=== PATIENT | male | born 1995 | race Caucasian/White ===

== ENCOUNTER 2017-03-19 08:16 | Emergency (ER) | payer SELFPAY ==
--- NOTE | 2017-03-19 08:46 | ER Document Report ---
HPI - HPI Patient complains to provider of: upper lip swelling, left nose swelling, left scalp lesion Onset: Other - few days Onset/Duration: Gradual Pain Level: 4 Context: 21 yo male with hx right thigh abscess c/o left scalp lesion that drained some pus, left nose red area and left upper lip red lesion. He tried to squeeze the nose and lip to get the pus out, no succes. No fever. Anxious. NKA Associated Symptoms: None Exacerbated by: Denies Relieved by: Denies Similar symptoms previously: Yes - right thigh - ROS ROS below otherwise negative: Yes Systems Reviewed and Negative: Yes All other systems reviewed and negative Past Medical History - General Information source: Patient - Social History Smoking Status: Current Every Day Smoker Frequency of alcohol use: None Drug Abuse: None Lives with: Family Family History: Reviewed & Not Pertinent - Medical History Medical History: Negative Surgical Hx: Negative Vertical Provider Document - CONSTITUTIONAL Agree With Documented VS: Yes Exam Limitations: No Limitations General Appearance: No Apparent Distress - INFECTION CONTROL TRAVEL OUTSIDE OF THE [place] IN LAST 30 DAYS: No - HEENT HEENT: Normocephalic Notes: right scalp with crusted 7mm abscess, Left external nares red, tender, no fluctuance, left upper kip at the meera border 1mm crusted lesion with extension upward 1 cm- the nose and face do not cumminate by exam - RESPIRATORY O2 Sat by Pulse Oximetry: 96 Course - Re-evaluation Re-evalutation: 03/19/17 11:08 ct shows soft tissue cellulitis no abscess - Vital Signs Vital signs: Temp Pulse Resp BP Pulse Ox 98.6 F 108 H 20 138/88 H 96 03/19/17 08:24 03/19/17 08:24 03/19/17 08:24 03/19/17 08:24 03/19/17 08:24 Procedures - Incision and Drainage Head Time completed: 10:30 Type: Simple Anesthetic type: 1% Lidocaine mL's of anesthetic: 2 Blade size: 11 I&D procedure: Other - antibacterial soap prep Incision Method: Incision made with needle Notes: 03/20/17 21:16 deroofed the left scalp lesion after anesthetizing, wound cx pus, cleansed with soap/H20, bactroban applied., anestheized left upper lip, 18 gauze needle used to deroof, palpated to remove the sebaceous d/c. bactroban applied to lateral nose and lip. instructed pt to do warm compress, take keflex and septra. Discharge - Discharge Clinical Impression: Facial cellulitis, left scalp abscess, left upper lip abscess Condition: Good Disposition: HOME, SELF-CARE Instructions: Acetaminophen, Cephalexin ([facility]), Use of [id number] Ibuprofen ([facility]), Trimethoprim-Sulfa ([facility]), Warm Packs ([facility]) Additional Instructions: to er if worse warm compress three times per day tylenol and motrin for pain scalp wound culture is pending septra twice a day keflex four times per day Prescriptions: Cephalexin Monohydrate [Keflex 500 mg Capsule] 500 mg PO QID #28 capsule Sulfamethoxazole/Trimethoprim [Sulfamethoxazole-Tmp Ds Tablet] 1 each PO BID # 14 tablet Forms: Return to Work
[2017-03-19] MEDS ORDERED: MUPIROCIN 2% OINTMENT 22 GM TP ONE (08:47)
[2017-03-19] MEDS ORDERED: LIDOCAINE 1% INJ-PF (10 MG/ML) 30 ML SDV INJ ONE (08:47)
[2017-03-19] MEDS ORDERED: ACETAMINOPHEN 325 MG TABLET PO ONE (09:31)
[2017-03-19] MEDS ORDERED: IBUPROFEN 800 MG TABLET PO ONE (09:31)
[2017-03-19] MEDS ORDERED: ONDANSETRON 4 MG TAB.RAPDIS PO ONE (09:32)
[2017-03-19] MEDS ORDERED: SULFAMETHOXAZOLE/TRIMETHOPRIM 800-160 MG TABLET PO ONE (09:32)
[2017-03-19] MEDS ORDERED: LORAZEPAM 1 MG TABLET PO ONE (09:56)
--- NOTE | 2017-03-19 10:54 | RADIOLOGY REPORT (SQ) ---
EXAM DESCRIPTION: CT FACIAL AREA WITH COMPLETED DATE/TIME: 03/19/2017 10:42 am REASON FOR STUDY: extension of facial abscess COMPARISON: None. TECHNIQUE: Post contrast images through the facial bones and orbits windowed for bone and soft tissu e. Additional coronal and sagittal reconstructed images reviewed. All images stored on PACS. All CT scanners at this facility use dose modulation, iterative reconstruction, and/or weight based d osing when appropriate to reduce radiation dose to as low as reasonably achievable (ALARA). [facility]: Dose Right [facility]: CareDose [facility]: Dose Right [facility]: Teradose 4D [facility]: U-Systems CONTRAST TYPE AND DOSE: contrast/concentration: Isovue 370.00 mg/ml; Total Contrast Delivered: 50.0 ml; Total Saline Delivered: 50.0 ml RENAL FUNCTION: None required. The patient is less than 50 years old. RADIATION DOSE: CT Rad equipment meets quality standard of care and radiation dose reduction techniq ues were employed. CTDIvol: 30.4 mGy. DLP: 574 mGy-cm. . LIMITATIONS: None. FINDINGS: FACIAL BONES: No fracture or bone lesion. ORBITS: Intact. No fracture. Symmetric intact globes and retroorbital soft tissues. PARANASAL SINUSES: Fluid in the ethmoid and sphenoid sinuses. Mucosal thickening maxillary sinuses. SOFT TISSUES: Subcutaneous inflammation over the left side of the face and cheek. No abscess INFERIOR BRAIN: Limited view. No acute findings. OTHER: No other significant finding. IMPRESSION: Cellulitis. No abscess. TECHNICAL DOCUMENTATION: JOB ID: [id number] Quality ID # [id number]: Final reports with documentation of one or more dose reduction techniques (e.g., Au tomated exposure control, adjustment of the mA and/or kV according to patient size, use of iterative reconstruction technique) 2010 [employer]- All Rights Reserved
[2017-03-19] MEDS ORDERED: CEPHALEXIN 500 MG CAPSULE PO ONE (11:03)
[2017-03-19 12:12] VITALS: BP 136/82
== END 2017-03-19 12:12 | disposition home or self-care (01) ==
LOC: ER 08:16
PROC: 0H90XZZ Drainage of Scalp Skin, External Approach (ICD-10-PCS; principal; 2017-03-19)
DX: L02.811 Cutaneous abscess of head [any part, except face] (principal); L03.211 Cellulitis of face; K13.0 Diseases of lips; R22.0 Localized swelling, mass and lump, head; F17.200 Nicotine dependence, unspecified, uncomplicated
CPT/HCPCS: 99284; 87070; 87205; 87077; 87186; 70487; 10060; S0119; J3490 ×2

== ENCOUNTER 2017-03-20 06:36 | Emergency (ER) | payer SELFPAY ==
[2017-03-20 06:44] VITALS: BP 125/88
--- NOTE | 2017-03-20 07:05 | ER Document Report ---
ED General - General Chief Complaint: Facial Swelling Stated Complaint: POSSIBLE ALLERGIC REACTION Time Seen by Provider: 03/20/17 06:49 Mode of Arrival: Ambulatory Information source: Patient Notes: 21 yr old male presents with complaitns of further facial swelling. Pt was seen here yesterday, he started on Bactrim and Keflex, had a CT facial which was consistent with cellulitis with no abscess. Patient notes when he woke this morning there was more swelling of his left upper lip, he denies any fevers denies any difficulty breathing denies any airway compromise patient denies any drainage TRAVEL OUTSIDE OF THE [place] IN LAST 30 DAYS: No - HPI Onset: Other - 3 day duration Onset/Duration: Worse Quality of pain: No pain Severity: Mild Pain Level: Denies Associated symptoms: Other Exacerbated by: Denies Relieved by: Denies Similar symptoms previously: Yes Recently seen / treated by doctor: Yes - Related Data Allergies/Adverse Reactions: No Known Drug Allergies Allergy (Verified 03/19/17 08:17) Past Medical History - Social History Smoking Status: Current Every Day Smoker Cigarette use (# per day): Yes Chew tobacco use (# tins/day): No Smoking Education Provided: No Frequency of alcohol use: Rare Drug Abuse: Marijuana Family History: Reviewed & Not Pertinent Patient has suicidal ideation: No Patient has homicidal ideation: No Renal/ Medical History: Denies: Hx Peritoneal Dialysis Review of Systems - Review of Systems Notes: REVIEW OF SYSTEMS: CONSTITUTIONAL : Denies fever, chills, or sweats. Denies recent illness. EENT: Pimple on nose CARDIOVASCULAR: Denies chest pain. Denies palpitations or racing or irregular heart beat. Denies ankle edema. RESPIRATORY: Denies cough, cold, or chest congestion. Denies shortness of breath, difficulty breathing, or wheezing. GASTROINTESTINAL: Denies abdominal pain or distention. Denies nausea, vomiting , or diarrhea. Denies blood in vomitus, stools, or per rectum. Denies black, tarry stools. Denies constipation. GENITOURINARY: Denies difficulty urinating, painful urination, burning, frequency, blood in urine, or discharge. MUSCULOSKELETAL: Denies back or neck pain or stiffness. Denies joint pain or swelling. SKIN: Left facial swelling left upper lip swelling HEMATOLOGIC : Denies easy bruising or bleeding. LYMPHATIC: Denies swollen, enlarged glands. NEUROLOGICAL: Denies confusion or altered mental status. Denies passing out or loss of consciousness. Denies dizziness or lightheadedness. Denies headache. Denies weakness or paralysis or loss of use of either side. Denies problems with gait or speech. Denies sensory loss, numbness, or tingling. Denies seizures. PSYCHIATRIC: Denies anxiety or stress. Denies depression, suicidal ideation, or homicidal ideation. ALL OTHER SYSTEMS REVIEWED AND NEGATIVE. Dictation was performed using [employer] voice recognition software PHYSICAL EXAMINATION: GENERAL: Well-appearing, well-nourished and in no acute distress. HEAD: Atraumatic, normocephalic. EYES: Pupils equal round extraocular movements intact, conjunctiva are normal. ENT: Nares patent there is a small palpable lymph nodes NECK: Normal range of motion LUNGS: No respiratory distress Musculoskeletal: Normal range of motion NEUROLOGICAL: Normal speech, normal gait. PSYCH: Normal mood, normal affect. SKIN: Cellulitis of left upper lip with edema there is no fluctuance noted no area of drainage. Physical Exam - Vital signs Vitals: Temp Pulse Resp BP Pulse Ox 98.2 F 101 H 18 125/88 H 99 03/20/17 06:38 03/20/17 06:38 03/20/17 06:38 03/20/17 06:38 03/20/17 06:38 Course - Re-evaluation Re-evalutation: 03/20/17 06:59 Patient was evaluated, image was pulled up and reviewed as well as read, I explained to the patient difference between cellulitis and abscess this time he does not fact appear to still be a cellulitic in nature there is no fluctuance there is no point tenderness, there is no drainage. I explained to the patient that if there was we would definitely incise it. Patient states he understands and will return for further evaluation and care if symptoms do worsen. I have encouraged the patient to continue his antibiotics which he told the nurse that he is no longer taking as he was concerned that the antibiotics are making the swelling worse. It is obvious that this is a infectious process rather than an allergic process. After performing a Medical Screening Examination, I estimate there is LOW risk for Raymon's angina, MENINGITIS, or ACUTE CORONARY SYNDROME, thus I consider the discharge disposition reasonable. I have reevaluated this patient multiple times and no significant life threatening changes are noted. The patient and I have discussed the diagnosis and risks, and we agree with discharging home to follow-up on an outpatient basis with the understanding that symptoms and presentations can change. We also discussed returning to the Emergency Department immediately if new or worsening symptoms occur. We have discussed the symptoms which are most concerning (e.g., saddle anesthesia, urinary or bowel incontinence or retention, changing or worsening pain) that necessitate immediate return. - Vital Signs Vital signs: Temp Pulse Resp BP Pulse Ox 98.2 F 101 H 18 125/88 H 99 03/20/17 06:38 03/20/17 06:38 03/20/17 06:38 03/20/17 06:38 03/20/17 06:38 - Diagnostic Test Radiology reviewed: Reports reviewed Discharge - Discharge Clinical Impression: Facial cellulitis Condition: Stable Disposition: HOME, SELF-CARE Additional Instructions: Please continue with the antibiotics, return immediately if he began to have fevers extension of the infection or any other concerns
== END 2017-03-20 07:02 | disposition home or self-care (01) ==
LOC: ER 06:36
DX: L03.211 Cellulitis of face (principal); R22.0 Localized swelling, mass and lump, head; F17.210 Nicotine dependence, cigarettes, uncomplicated
CPT/HCPCS: 99283